=== PATIENT | female | born 1955 | race African-American/Black ===

== ENCOUNTER 2017-10-13 18:33 | Emergency (ER) | payer MEDICARE, OTHER ==
[~2017-10-13] VITALS: Ht 157.5 cm; Wt 72.7 kg
[2017-10-13 18:39] VITALS: BP 126/85; PULSE 90; RESP 20; TEMP 97.5; O2SAT 97
--- NOTE | 2017-10-13 19:40 | PD ---
HPI Chief Complaint: Pain: Acute or Chronic Time Seen by Provider: 19:33 Travel History International Travel<30 days: No Contact w/Intl Traveler<30days: No Traveled to known affect area: No History of Present Illness HPI 62-year-old female with reported history of fibromyalgia, arthritis, here for evaluation of generalized aches and pains in her joints. She states that she is here on vacation from [place] and is out of her medications. She states she usually takes Lyrica. She reports that this usually happens every 3 weeks or so and she goes to an ER and receives a "cocktail." Pain is described as sharp and burning, constant, moderate, worse with movements. No fevers. No trauma. PFSH Social History Tobacco Use: No Allergies-Medications (Allergen,Severity, Reaction): Coded Allergies: No Known Allergies (Unverified , 10/13/17) Reported Meds & Prescriptions Reported Meds & Active Scripts Active Hydrocodone-Acetaminophen 5-325 mg Tab 1 Tab PO Q6H PRN Review of Systems Except as stated in HPI: all other systems reviewed are Neg Physical Exam Narrative GENERAL: Well-developed, well-nourished, awake, alert, comfortable, no apparent distress. SKIN: Focused skin assessment warm/dry. HEAD: Atraumatic. Normocephalic. EYES: Pupils equal and round. No scleral icterus. No injection or drainage. ENT: Mucous membranes pink and moist. NECK: Trachea midline. No JVD. CARDIOVASCULAR: Regular rate and rhythm. RESPIRATORY: No accessory muscle use. Clear to auscultation. Breath sounds equal bilaterally. GASTROINTESTINAL: Abdomen soft, non-tender, nondistended. MUSCULOSKELETAL: No obvious deformities. No clubbing. No cyanosis. No edema. Normal range of motion in all joints and extremities without obvious deformity, without warmth or erythema. NEUROLOGICAL: Awake and alert. No obvious cranial nerve deficits. Motor grossly within normal limits. Normal speech. PSYCHIATRIC: Appropriate mood and affect; insight and judgment normal. Data Data Last Documented VS Vital Signs Date Time Temp Pulse Resp B/P (MAP) Pulse Ox O2 Delivery O2 Flow Rate FiO2 10/13/17 18:39 97.5 90 20 126/85 (99) 97 Orders Orders Basic Metabolic Panel (Bmp) (10/13/17 19:37) Complete Blood Count With Diff (10/13/17 19:37) Iv Access Insert/Monitor (10/13/17 19:37) Ecg Monitoring (10/13/17 19:37) Oximetry (10/13/17 19:37) Sodium Chloride 0.9% Flush (Ns Flush) (10/13/17 19:45) Creatine Kinase (Cpk) (10/13/17 19:37) Morphine Inj (Morphine Inj) (10/13/17 19:45) Dexamethasone Inj (Decadron Inj) (10/13/17 19:45) CKMB (10/13/17 19:55) CKMB% (10/13/17 19:55) Ketorolac Inj (Toradol Inj) (10/13/17 21:45) Acetamin-Hydrocod 325-5 Mg (Rand 5-325 (10/13/17 21:45) Ed Discharge Order (10/13/17 21:41) Labs Laboratory Tests Test 10/13/17 19:55 White Blood Count 12.2 TH/MM3 Red Blood Count 3.79 MIL/MM3 Hemoglobin 12.0 GM/DL Hematocrit 35.0 % Mean Corpuscular Volume 92.4 FL Mean Corpuscular Hemoglobin 31.8 PG Mean Corpuscular Hemoglobin Concent 34.4 % Red Cell Distribution Width 14.9 % Platelet Count 290 TH/MM3 Mean Platelet Volume 9.6 FL Neutrophils (%) (Auto) 49.1 % Lymphocytes (%) (Auto) 43.4 % Monocytes (%) (Auto) 5.6 % Eosinophils (%) (Auto) 1.2 % Basophils (%) (Auto) 0.7 % Neutrophils # (Auto) 6.0 TH/MM3 Lymphocytes # (Auto) 5.3 TH/MM3 Monocytes # (Auto) 0.7 TH/MM3 Eosinophils # (Auto) 0.1 TH/MM3 Basophils # (Auto) 0.1 TH/MM3 CBC Comment AUTO DIFF Differential Total Cells Counted 100 Neutrophils % (Manual) 51 % Band Neutrophils % 3 % Lymphocytes % 41 % Monocytes % 5 % Neutrophils # (Manual) 6.6 TH/MM3 Differential Comment FINAL DIFF MANUAL Platelet Estimate NORMAL Platelet Morphology Comment NORMAL Red Cell Morphology Comment NORMAL Blood Urea Nitrogen 17 MG/DL Creatinine 0.65 MG/DL Random Glucose 86 MG/DL Calcium Level 8.5 MG/DL Sodium Level 142 MEQ/L Potassium Level 4.0 MEQ/L Chloride Level 110 MEQ/L Carbon Dioxide Level 24.7 MEQ/L Anion Gap 7 MEQ/L Estimat Glomerular Filtration Rate 113 ML/MIN Total Creatine Kinase 285 U/L Creatine Kinase MB 4.0 NG/ML Creatine Kinase MB % 1.4 % MDM Medical Decision Making Medical Screen Exam Complete: Yes Emergency Medical Condition: Yes Differential Diagnosis Acute exacerbation of fibromyalgia, arthritis, rhabdo, septic arthritis unlikely Narrative Course Vital signs reviewed and are within normal limits. CBC: WBC 12.2, hemoglobin 12, hematocrit 35, platelets 290 CMP is unremarkable. Total CK 275. Patient was given morphine and Decadron and initially had significant improvement in symptoms. On reassessment she states that her pain is returning. There are no signs of septic arthritis on exam and this is likely an exacerbation of her chronic pain from fibromyalgia and arthritis. Patient has been on Lyrica and gabapentin as well as other medications for pain in the past, and I offered to give her a prescription for these medications, however she states that these do not help with her pain. I also offered to give her a prescription for naproxen, however she states that this does not help either. Because she is out of town I will give her a short course of Lortab and advised that she contact her primary care physician back in [place] should she need more pain control. At this point she is stable for discharge home with outpatient follow-up with her primary care physician this week. She was advised on when to return to the emergency department. She verbalizes understanding and agreement with plan. Diagnosis Primary Impression: Arthralgia Qualified Codes: M25.50 - Pain in unspecified joint Referrals: Primary Care Physician 3 days Additional Instructions: Follow-up with your primary care physician this week. Return to the emergency department for worsening symptoms or any other concerns. Scripts Hydrocodone-Acetaminophen (Hydrocodone-Acetaminophen) 5-325 mg Tab 1 TAB PO Q6H Y for PAIN, #10 TAB 0 Refills Prov: Woody Amaro MD 10/13/17 Disposition: 01 DISCHARGE HOME Condition: Stable Woody Amaro MD Oct 13, 2017 19:40
[2017-10-13] MEDS ORDERED: DEXAMETHASONE SOD PHOS 4 MG/ML VIAL IV PUSH ONE (19:45)
[2017-10-13] MEDS ORDERED: MORPHINE SULFATE 2 MG/ML SYRINGE IV PUSH ONE (19:45)
[2017-10-13] MEDS ORDERED: SODIUM CHLORIDE 0.9% FLUSH 10 ML FLUSH IV FLUSH PRN (19:45)
[2017-10-13 20:30] LABS: BASOPHIL # 0.1 TH/MM3 (0-0.2); BASOPHIL % 0.7 % (0.0-2.0); EOSINOPHIL # 0.1 TH/MM3 (0-0.4); EOSINOPHIL % 1.2 % (0.0-4.0); LYMPH % 43.4 % (9.0-44.0); LYMPHOCYTE # 5.3 TH/MM3 (1.0-4.8); MEAN CELL VOLUME 92.4 FL (80.0-100.0); MEAN CORPUSCULAR HEMOGLOBIN 31.8 PG (27.0-34.0); MEAN CORPUSCULAR HGB CONC 34.4 % (32.0-36.0); MEAN PLATELET VOLUME 9.6 FL (7.0-11.0); MONO % 5.6 % (0.0-8.0); MONOCYTE # 0.7 TH/MM3 (0-0.9); NEUT % 49.1 % (16.0-70.0); PLATELET COUNT 290 TH/MM3 (150-450); RED BLOOD COUNT 3.79 MIL/MM3 (4.00-5.30); RED CELL DISTRIBUTION WIDTH 14.9 % (11.6-17.2); WHITE BLOOD COUNT 12.2 TH/MM3 (4.0-11.0)
[2017-10-13 20:42] LABS: BICARBONATE 24.7 MEQ/L (21.0-32.0); CALCIUM 8.5 MG/DL (8.5-10.1); CREATININE 0.65 MG/DL (0.50-1.00)
[2017-10-13 21:23] LABS: BANDS 3 % (0-6); LYMPHOCYTES 41 % (9-44); MONOCYTES 5 % (0-8); NEUTROPHIL # MANUAL DIFF 6.6 TH/MM3 (1.8-7.7); POLYS (SEG NEUTROPHILS) 51 % (16-70)
[2017-10-13] MEDS ORDERED: HYDR-3516 PO (21:40)
[2017-10-13] MEDS ORDERED: ACETAMINOPHEN/HYDROcodone 325 MG/5 MG TAB PO ONE (21:45)
[2017-10-13] MEDS ORDERED: KETOROLAC TROMETHAMINE 30 MG/ML (IVP) VIAL IV PUSH ONE (21:45)
== END 2017-10-13 22:09 | disposition home or self-care (01) ==
LOC: NEPD 18:33
DX: M25.50 Pain in unspecified joint (principal); M79.7 Fibromyalgia
CPT/HCPCS: 80048; 82550; 82552; 85007; 85027; 96374; 96375; 99283; J1100; J1885; J2270